=== PATIENT | male | born 1985 | race Caucasian/White ===

== ENCOUNTER 2025-04-02 08:37 | Emergency (ER) | payer MEDICAID ==
[~2025-04-02] VITALS: Ht 180.3 cm; Wt 90.9 kg
[~2025-04-02 08:37] MED LIST: PANT-31 PO
[2025-04-02] MEDS ORDERED: SUCR1TAB2 PO (08:46)
[2025-04-02 09:07] LABS: BASOPHILS % (AUTO) 0.6 % (0.0-2.0); EOSINOPHILS % (AUTO) 1.9 % (1.0-6.0); HEMOGLOBIN 15.9 g/dL (13.5-17.5); LYMPHOCYTES # (AUTO) 1.3 K/uL (1.0-4.8); LYMPHOCYTES % (AUTO) 29.7 % (22.0-44.0); MEAN CORPUSCULAR HEMOGLOBIN 29.6 pg (26.0-34.0); MEAN CORPUSCULAR HGB CONC 33.9 G/dL (31.0-37.0); MEAN CORPUSCULAR VOLUME 87 fL (80-100); MONOCYTES # (AUTO) 0.3 K/uL (0.1-1.0); MONOCYTES % (AUTO) 7.7 % (2.0-9.0); NEUTROPHILS # (AUTO) 2.6 K/uL (1.8-7.7); NEUTROPHILS % (AUTO) 60.1 % (40.0-70.0); PLATELET COUNT (AUTO) 254 K/uL (150-450); RED BLOOD CELL COUNT(AUTO) 5.38 MIL/uL (4.50-5.90); WHITE BLOOD COUNT (AUTO) 4.4 K/uL (4.5-11.0)
[2025-04-02 09:15] LABS: ANION GAP 8 mmol/L (8-16); CALCIUM, TOTAL 9.2 mg/dL (8.8-10.5); CARBON DIOXIDE 28 mmol/L (22-29); CHLORIDE 101 mmol/L (98-107); CREATININE 0.96 mg/dL (0.60-1.30); GLOMERULAR FILTR. RATE CALC > 60 mL/min (>60); GLUCOSE,RANDOM 135 mg/dL (70-110); POTASSIUM 3.5 mmol/L (3.5-5.1); SODIUM SERUM 137 mmol/L (136-145); UREA NITROGEN, BLOOD 11 mg/dL (7-18)
[2025-04-02 09:25] LABS: TROPONIN I-HIGH SENSITIVITY 4 ng/L (<76)
[2025-04-02 11:33] VITALS: BP 120/72; PULSE 71; RESP 16; TEMP 98.1; O2SAT 97
[2025-04-02] MEDS: methocarbamoL 500 MG TABLET PO ONE (12:25)
[2025-04-02] MEDS: KETOROLAC TROMETHAMINE 60 MG/2 ML VIAL IM ONE (12:27)
[2025-04-02] MEDS ORDERED: FAMO20 PO (13:20)
== END 2025-04-02 14:00 | disposition home or self-care (01) ==
LOC: EMS 08:37
DX: K21.9 Gastro-esophageal reflux disease without esophagitis (principal); R07.2 Precordial pain; Z79.899 Other long term (current) drug therapy; Z98.890 Other specified postprocedural states
CPT/HCPCS: 99285; 71045; 80048; 84484; 85025; 36415; 93005; 96372; J1885; 99284